=== PATIENT | female | born 1975 | race Caucasian/White ===

== ENCOUNTER 2021-04-11 15:03 | Emergency (ER) | payer SELFPAY ==
[~2021-04-11 15:03] MED LIST: BACLOFEN20 MG PO; CYMBALTA60 MG PO; FLEXERIL 10 MG10 MG PO; IBUPROFEN800 MG PO; LASIX20 MG PO; NEURONTIN400 MG PO; NORCO 5-325 TA1 EACH PO; PREDNISONE20 MG PO
== END 2021-04-11 15:28 | disposition left against medical advice (07) ==
LOC: ER1 15:03
DX: Z53.21 Procedure and treatment not carried out due to patient leaving prior to being seen by health care provider (principal)